=== PATIENT | male | born 1965 | race Caucasian/White ===

== ENCOUNTER 2022-02-12 06:31 | Inpatient (IN) | payer SELFPAY ==
[2022-02-12] VITALS (27 sets, daily range): BP systolic 97–180; BP diastolic 68–120; PULSE 48–71; RESP 12–22; TEMP 36.4–37; O2SAT 94–100; BMI 31.8; BMI 30.8
--- NOTE | 2022-02-12 | IR_ITS ---
APPROVED REPORT Patient Location: Emergent Head Holder: JUSTIN Guevara RT (R) PROCEDURES 1. Left heart catheterization 2. Selective coronary arteriography 3. Left ventriculography 4. PTCA/stent to the right coronary artery INDICATION 1. Acute coronary syndrome, 2. Non-Q wave myocardial infarction, 3. Abnormal EKG SCAI INDICATION Patient is a 56-year-old white male who presented with prolonged chest pain to the emergency room. Some inferior changes on the EKG. He was unable to get chest pain-free. Enzymes came back elevated. He has had stuttering chest pain over 2 days. Non-Q wave myocardial infarction with acute coronary syndrome. Heparin was given as well as Brilinta. Brought directly to the cardiac catheterization laboratory secondary to this Informed consent was obtained prior to the procedure. COMPLICATIONS None Estimated Blood Loss: Less than 10 mls TECHNIQUE One percent lidocaine was used to anesthetize the right groin. The right femoral artery was accessed via the Seldinger technique. A 6 Ghanaian sheath was placed in the right femoral artery. The JL-4 and JR-4 catheter was also used to perform left heart catheterization left ventriculogram and selective coronary angiogram. At the end of the procedure the patient was transferred to the post-op holding area in stable condition for arterial sheath removal. ANGIOGRAPHIC RESULTS The left main artery Angiographically normal The left anterior descending artery Diffuse 20 to 30% proximal and mid stenosis. Normal flow into the distal vessel The circumflex artery Diffuse 30% stenoses in the mid vessel. Mild calcification The right coronary artery Large and dominant. 90% proximal stenosis followed by 100% mid occlusion. Scant left to right collaterals filling the distal vessel The BEAVER ventriculogram reveals Borderline normal left ventricular systolic function with an ejection fraction of 50%. Mild to moderate inferior wall hypokinesis. No noted mitral insufficiency The left ventricular end-diastolic pressure 21 After diagnostic cath was performed I went in with a guide catheter to the right coronary artery. Crossed the 100% lesion with a Choice PT wire. I predilated with a 2 x 20 mm balloon. Took this up in 3 separate locations. Resulted in spiritism of normal MAKENZIE-3 flow to the vessel. There was a thrombus in the mid vessel where the lesion was present. I stented across this with a 3.0 x 26 mm drug-eluting stent. Resulted in 0% residual stenosis. I then stented the proximal vessel with a 3.0 x 15 mm drug-eluting stent. This also resulted in 0% residual stenosis. Excellent MAKENZIE-3 flow into the large posterior descending artery and posterior lateral branches when the procedure was complete. IMPRESSION 1. 100% occlusion of the large dominant right coronary artery in its midportion after the takeoff of an acute marginal branch 2. Mild to moderate diffuse disease in the left coronary system 3. Mild diffuse coronary calcification 4. Borderline normal left ventricular systolic function 5. Elevated left ventricular end-diastolic pressure 6. Successful angioplasty and stenting of the proximal and mid/distal large dominant right coronary artery with drug-eluting stents resulting in 0% residual stenosis and spiritism of normal MAKENZIE-3 flow 7. Successful placement of an Angio-Seal device in the right common femoral artery PLAN 1. Patient received a heparin bolus in the emergency room. His ACT was greater than 250 but I did give an additional 1000 of heparin during the procedure. Brilinta 180 mg was given in the emergency room. He will continue on 90 mg twice daily. 1 dose of IV Lasix in a couple of hours.
--- NOTE | 2022-02-12 06:36 | XR_ITS ---
PROCEDURE INFORMATION: Exam: XR Chest Exam date and time: 02/12/2022 6:40 AM Age: 56 years old Clinical indication: Left-sided; Patient HX: Left sided chest pain into shoulder TECHNIQUE: Imaging protocol: XR of the chest. Views: 2 views. COMPARISON: CR CS5 CERVICAL SPINE 4 OR 5 VIEWS 07/25/2016 1:15 PM FINDINGS: Tubes, catheters and devices: Overlying monitoring leads. Lungs: No lobar consolidation. Pleural spaces: Unremarkable. No pleural effusion. No pneumothorax. Heart/Mediastinum: Unremarkable. No cardiomegaly. Vasculature: Mild aortic tortuosity. Diaphragm: Diaphragmatic eventration is. Bones/joints: Spine degenerative changes. IMPRESSION: No acute findings.
--- NOTE | 2022-02-12 06:39 | CT_ITS ---
PROCEDURE INFORMATION: Exam: CT Abdomen And Pelvis With Contrast Exam date and time: 02/12/2022 7:32 AM Age: 56 years old Clinical indication: Vomiting; Abdominal pain; Periumbilical; Prior surgery; Surgery date: 6+ months; Surgery type: Appendix; Additional info: Abdominal pain/chest pain TECHNIQUE: Imaging protocol: Computed tomography of the abdomen and pelvis with contrast. Radiation optimization: All CT scans at this facility use at least one of these dose optimization techniques: automated exposure control; mA and/or kV adjustment per patient size (includes targeted exams where dose is matched to clinical indication); or iterative reconstruction. Contrast material: ISOVUE; Contrast volume: 75 ml; Contrast route: IV; COMPARISON: CR [id number] HIP RT 2-3V W/PELVIS IF PERFOR 07/25/2016 1:25 PM FINDINGS: Lungs: visualized portions of the lung bases normal. Liver: Fatty infiltration of the liver. Gallbladder and bile ducts: Normal. No calcified stones. No ductal dilation. Pancreas: Normal. No ductal dilation. Spleen: Normal. No splenomegaly. Adrenal glands: Normal. No mass. Kidneys and ureters: 1 cm cyst left kidney Stomach and bowel: Moderate amount stool within the large bowel. Appendix: The appendix is not visualized. Intraperitoneal space: No free fluid within the pelvis or within the dependent portions of the peritoneum. Arteries: Flow within the superior mesenteric artery, celiac trunk and inferior mesenteric arteries. Lymph nodes: Unremarkable. No enlarged lymph nodes. Urinary bladder: Unremarkable as visualized. Reproductive: Unremarkable as visualized. Bones/joints: osseous structures are unremarkable other than mild degenerative disk disease. No fracture. Soft tissues: Unremarkable. Other findings: No acute intra-abdominal process. No inflammatory process. No obstruction. IMPRESSION: 1. No acute intra-abdominal process. No inflammatory process. No obstruction. 2. No free fluid within the pelvis or within the dependent portions of the peritoneum. 3. Fatty infiltration of the liver. COMMENTS: Consistent with the [employer]'s Incidental Findings Committee white paper (J Am Lena Radiol 2018): Any incidental renal lesion less than 1 cm or classified as too small to characterize, or any incidental cystic renal lesion characterized as simple-appearing, is likely benign. No follow-up imaging is recommended for these lesions per consensus recommendations based on imaging criteria.
[2022-02-12 06:46] LABS: Basophils # 0.1 K/mm3 (0-0.2); Basophils % 1.1 % (0.1-2.0); Eosinophils # 0.1 K/mm3 (0.0-0.4); Eosinophils % 1.3 % (0.1-12.0); Hematocrit 43.1 % (42.0-52.0); Hemoglobin 14.3 g/dL (14.1-18.0); Lymphocytes % 11.6 % (10-50); Mean Corpuscular HGB Conc 33.2 g/dL (31.8-35.4); Mean Corpuscular Volume 96.5 fl (80-94); Mean Platelet Volume 8.4 fl (7.4-10.4); Monocytes # 0.3 K/mm3 (0.1-1.0); Monocytes % 3.4 % (1.7-9.3); Neutrophils % 82.7 % (37.0-80.0); Platelet Count 227 K/mm3 (142-424); Red Blood Count 4.46 M/mm3 (4.60-6.20); Red Cell Distribution Width 13.5 % (11.5-17.5); White Blood Count 8.5 K/mm3 (4.8-10.8)
[2022-02-12 07:12] LABS: Chloride 107 mmol/L (98-107); Potassium 4.1 mmoL/L (3.5-5.1); Sodium 138 mmol/L (136-145)
[2022-02-12 07:14] LABS: Amylase 63 U/L (30-110); Blood Urea Nitrogen 25 mg/dl (9-20); Creatinine Clearance Estimated 159 mL/min (50-200); Estimated Glomerular Filt Rate 100 ml/min (>60); GFR (African American) 121 ML/MIN (>60)
[2022-02-12 07:15] LABS: Alanine Aminotransferase 36 U/L (12-78); Albumin Level 4.2 g/dl (3.5-5.0); Alkaline Phosphatase 68 U/L (38-126); Anion Gap 11.1 mEq/L (5-15); Aspartate Amino Transferase 42 U/L (17-59); Bilirubin,Direct 0.1 mg/dl (0.0-0.4); Bilirubin,Indirect 0.4 mg/dL (0.0-0.9); Bilirubin,Total 0.5 mg/dl (0.2-1.3); Bilirubin,Unconjugated 0.4 mg/dL (0.0-1.1); Calcium 8.8 mg/dl (8.4-10.2); Carbon Dioxide 24 mmol/L (22.0-30.0); Glucose 114 mg/dl (74-100); Lipase 67 U/L (23-300); Total Protein,Serum 7.2 g/dl (6.3-8.2)
[2022-02-12 07:17] LABS: Erythrocyte Sedimentation Rate 18 mm/hr (0-20)
[2022-02-12 07:20] LABS: C-Reactive Protein 0.9 mg/L (0-4)
--- NOTE | 2022-02-12 07:23 | HMH.EDCP ---
ED Disposition Clinical Impression: Unstable angina pectoris Disposition: Admitted As Inpatient Condition on Discharge: Serious Referrals: Provider,Referral, [Primary Care Provider] - - Critical Care Critical Care Time: No Attestation: On 02/12/22, the high probability of a clinically significant, sudden or life threatening deterioration of the following system(s) required my full and direct attention, intervention and personal management. The time I documented below is in addition to time spent performing reported procedures but includes the following listed in this critical care notation. Medical Decision Making - Medical Records Medical records reviewed: Yes: I reviewed the patient's medical records. - Willie Inquiry Pt receiving controlled substance: No Vital Signs: 02/12/22 06:31 02/12/22 06:47 02/12/22 08:01 Temperature 97.8 F Temperature Source Oral Pulse Rate 66 56 L Pulse Rate [Left] 62 Respiratory Rate 13 Blood Pressure 180/120 H 173/107 H Blood Pressure [Right Arm] 160/106 H Blood Pressure Mean [Right Arm] 124 Blood Pressure Source Manual Cuff/ Auscultation Blood Pressure Position 02 Sat by Pulse Oximetry 100 100 Oxygen Delivery Method Room Air Room Air 02/12/22 08:12 Temperature Temperature Source Pulse Rate 51 L Pulse Rate [Left] Respiratory Rate 16 Blood Pressure 128/83 Blood Pressure [Right Arm] Blood Pressure Mean [Right Arm] Blood Pressure Source Blood Pressure Position Sitting 02 Sat by Pulse Oximetry 98 Oxygen Delivery Method Room Air - Lab Data Lab results reviewed: Yes: I reviewed the patient's lab results. Lab Results 02/12/22 06:37: WBC 8.5, RBC 4.46 L, Hgb 14.3, Hct 43.1, MCV 96.5 H, MCH 32.0 H, MCHC 33.2, RDW 13.5, Plt Count 227, MPV 8.4, Neut % (Auto) 82.7 H, Lymph % (Auto) 11.6, [place] % (Auto) 3.4, Eos % (Auto) 1.3, Baso % (Auto) 1.1, Neut # (Auto) 7.0, Lymph # (Auto) 1.0, [place] # (Auto) 0.3, Eos # (Auto) 0.1, Baso # (Auto) 0.1, ESR 18 02/12/22 06:37: Sodium 138, Potassium 4.1, Chloride 107, Carbon Dioxide 24, Anion Gap 11.1, BUN 25 H, Creatinine 0.80, Estimated Creat Clear 159, Estimated GFR 100, Est GFR ( Amer) 121, Glucose 114 H, Calcium 8.8, Total Bilirubin 0.5, Direct Bilirubin 0.1, Conjugated Bilirubin 0.0, Indirect Bilirubin 0.4, Unconjugated Bilirubin 0.4, AST 42, ALT 36, Alkaline Phosphatase 68, C-Reactive Protein 0.9, Total Protein 7.2, Albumin 4.2, Amylase 63, Procalcitonin 0.085 02/12/22 06:37: Troponin I 0.28 H, Lipase 67 02/12/22 07:57: SARS-CoV-2 (PCR) Not detected, Influenza A Untype (PCR) Not detected, Influenza Type B (PCR) Not detected Result diagrams: 02/12/22 06:37 02/12/22 06:37 Orders (Tests/Meds): ED MEDICATIONS Generic Name Dose Route Start Last Admin Trade Name Freq PRN Reason Stop Dose Admin Nitroglycerin 0.4 mg 02/12/22 08:07 02/12/22 08:04 Nitroglycerin 0.4mg Sl Tablet SL 03/14/22 08:06 0.4 mg Q5MINP PRN Administration Chest Pain Discontinued Medications Generic Name Dose Route Start Last Admin Trade Name Freq PRN Reason Stop Dose Admin Heparin Sodium (Porcine) 10,800 unit 02/12/22 09:00 Heparin Sodium 5,000 Unit/Ml Vial IV 02/12/22 09:01 ONCE ONE Lactated Ringer's 1,000 mls @ 999 mls/hr 02/12/22 06:45 02/12/22 06:44 Lactated Ringer's 1000 Ml Bag IV 02/12/22 07:45 999 mls/hr .Q1H1M VERONICA Administration Iopamidol 75 ml 02/12/22 07:47 02/12/22 07:48 Iopamidol-370 (76%);100ml Bottle IV 02/12/22 07:48 75 ml ONCE ONE Administration Morphine Sulfate 2 mg 02/12/22 08:46 02/12/22 08:47 Morphine 2mg/Ml Syringe IV 02/12/22 08:47 2 mg ONCE ONE Administration Nitroglycerin 1 gm 02/12/22 08:07 02/12/22 08:05 Nitroglycerin 1 Gm Ointment TD 02/12/22 08:08 1 gm ONCE ONE Administration Ondansetron HCl 4 mg 02/12/22 08:46 02/12/22 08:47 Ondansetron 4mg/2ml Vial IV 02/12/22 08:47 4 mg ONCE ONE Administration Sodium Chl
--- NOTE | 2022-02-12 07:30 | PC.NURSE ---
PT C/O CHEST TIGHTNESS, SOB, WHICH WOKE HIM UP THIS AM. PT WAS GIVEN 324MG ASA ENROUTE BY SQUAD. PT RATES PAIN 3/10
[2022-02-12 07:35] LABS: Troponin I 0.28 ng/ml (0.00-0.034)
--- NOTE | 2022-02-12 07:48 | ECG_ITS ---
APPROVED REPORT Exam: Resting ECG HR:51 bpm ECG Measurements Heart Rate 51 AXES MN 207 P 61 QRSd 105 QRS 75 QT 410 T 61 QTc 387 Conclusion SINUS BRADYCARDIA BORDERLINE ECG UNCONFIRMED REPORT Electronically signed by : Vidal Shah MD 02/13/2022 15:13:53
[2022-02-12 07:57] LABS: Procalcitonin 0.085 ng/mL (0.0-2.0)
--- NOTE | 2022-02-12 08:04 | PC.NURSE ---
has been paged
[2022-02-12 08:19] LABS: Coronavirus 19, PCR Not Detected (NotDetected); Influenza A, PCR Not Detected (NotDetected); Influenza B, PCR Not Detected (NotDetected)
--- NOTE | 2022-02-12 08:57 | PC.NURSE ---
0852: Notified by ER staff that pt is going to the distillery laborer at 1030 per MD. 0853: Obiee Architect notified to page cath team [phone] : Perri Lentz, and Mirna all returned call and notified of cath at 1030
--- NOTE | 2022-02-12 09:00 | PC.NURSE ---
PT RESTING CONTINUES TO C/O PAIN
[2022-02-12 09:17] LABS: Microscopic, Urine URINE MICROSCOPIC (MICROSCOPIC)
[2022-02-12 09:21] LABS: Appearance,Urine CLEAR (Clear); Bilirubin,Urine Negative (Negative); Blood, Urine Negative (Negative); Color,Urine YELLOW (Yellow); Glucose,Urine (UA) Negative (Negative); Ketones,Urine Negative (Negative); Leukocyte Esterase,Urine Negative (Negative); Nitrate,Urine Negative (Negative); PH,Urine 5.5 (5.0-8.5); Protein,Urine Negative (Negative); Specific Gravity, Urine >= 1.030 (1.005-1.030); Urobilinogen,Urine 0.2 EU/dl (0.2)
[2022-02-12 09:56] LABS: Bacteria,Urine Trace /lpf; Squamous Epithelial Cell,Urine Occasional #/hpf (0-5); WBC,Urine Occasional #/hpf (0-3)
--- NOTE | 2022-02-12 09:58 | PC.NURSE ---
pt's brother called regarding pt's condition gave password [email or web address]
--- NOTE | 2022-02-12 10:00 | PC.NURSE ---
PT UP TO BATHROOM AMBULATORY WITH NO COMP
--- NOTE | 2022-02-12 10:20 | PC.NURSE ---
TO RECEIVING WEIGHER PER STRETCHER
[2022-02-12 11:18] LABS: CATHL Activated Clotting Time 249 SEC (74-125)
[2022-02-12 13:41] LABS: Troponin I 5.29 ng/ml (0.00-0.034)
--- NOTE | 2022-02-12 13:48 | PC.NURSE ---
Dr. Borges notified of critical troponin of 5.29. NNO. Pt resting at this time w/ no d/o's.
--- NOTE | 2022-02-12 14:39 | HMH.HP ---
*Admission Date: 02/12/22 *Chief complaint: Chest pain *History of present illness: Mr. Lewis is a 56-year-old white male with no known heart disease but past history of hypertension and hyperlipidemia for which he has been treated in the past but quit taking his medication when he lost insurance 2 years ago. He states he had a stress test about 4 years ago that was normal. Two days ago while traveling out of town he had an episode of substernal chest pain that resolved spontaneously. Last night after going to bed he was awakened with severe substernal chest pain radiating to the left axilla. Symptoms worsened and he called EMS. An EKG at the scene was reported as normal and he therefore refused transport. However later his pain became even worse and he became nauseated with vomiting and he called EMS back to his house and was then transported to the ER. Evaluation in the ER showed equivocal EKG changes. His initial troponin was slightly elevated at 0.28. However with his classic presentation consistent with unstable angina, Dr. Lara spoke with Dr. Toussaint on-call for cardiology and the patient was taken directly to the Caseworker from the ER. He underwent left heart cath with findings of a 100% occluded dominant right coronary artery which was stented and reduced to 0% occlusion. I am seeing him now after arrival to the floor and he is pain-free. [facility] History Medical History: Reports:: Hyperlipidemia, Hypertension Denies:: Atherosclerotic Heart Disease *Have you ever received a pneumonia vaccine?: (unknown) *Have you received a flu vaccine this season?: (unknown) Other Surgeries: Yes: No Previous Surgery - *Social History Last grade of school completed: None Smoking Status: Never smoker Alcohol Intake: never Substance Use Type: denies use *Occupational Status:: employed ([employer]) *Travel in the last 8 weeks: Inside the [facility] Family Hx:: No significant family history Review of Systems - Constitutional Denies lack of energy, Denies weakness, Denies weight loss - Eyes Denies change in vision - ENT Denies dizziness, Denies headache(s), Denies sore throat - *Cardiovascular Reports other (See HPI) - *Respiratory Denies chest congestion, Denies cough, Denies coughing up blood - *Gastrointestinal Reports difficulty swallowing, Denies abdominal pain, Denies coffee ground vomit - *Genitourinary Denies difficulty urinating - *Musculoskeletal Denies joint pain, Denies muscle cramps - Integumentary/Breasts Reports itching, Reports rash, Denies change in skin color - *Neurologic Denies confusion, Denies dizziness, Denies numbness - Psychiatric Denies anxiety, Denies confusion, Denies depression - Endocrine Denies rapid, pounding, or irregular heartbeat - Hematologic/Lymphatic Reports easy bruising - Allergic/Immunologic Denies itchy eyes Meds Home Medications Medication Instructions Recorded Confirmed Type No Known Home Medications 02/12/22 02/12/22 History Allergies Allergy/AdvReac Type Severity Reaction Status Date / Time lisinopril Allergy Mild Swelling Verified 02/12/22 14:52 of Lip/Tongue/Throat Exam Vital signs and Labs for Last 24 Hours: Temp Pulse Resp BP Pulse Ox 97.6 F 58 L 14 139/81 98 02/12/22 12:15 02/12/22 13:45 02/12/22 13:45 02/12/22 13:45 02/12/22 13:45 Laboratory Results - last 24 hr 02/12/22 06:37: WBC 8.5, RBC 4.46 L, Hgb 14.3, Hct 43.1, MCV 96.5 H, MCH 32.0 H, MCHC 33.2, RDW 13.5, Plt Count 227, MPV 8.4, Neut % (Auto) 82.7 H, Lymph % (Auto) 11.6, [place] % (Auto) 3.4, Eos % (Auto) 1.3, Baso % (Auto) 1.1, Neut # (Auto) 7.0, Lymph # (Auto) 1.0, [place] # (Auto) 0.3, Eos # (Auto) 0.1, Baso # (Auto) 0.1, ESR 18 02/12/22 06:37: Sodium 138, Potassium 4.1, Chloride 107, Carbon Dioxide 24, Anion Gap 11.1, BUN 25 H, Creatinine 0.80, Estimated Creat Clear 159, Estimated GFR 100, Est GFR ( Amer) 121, Glucose 114 H, Calcium 8.
[2022-02-13] VITALS (9 sets, daily range): BP systolic 104–140; BP diastolic 60–96; PULSE 53–71; RESP 16–20; TEMP 36.6–37.3; O2SAT 95–98; BMI 30.5
--- NOTE | 2022-02-13 04:06 | PC.NURSE ---
Addendum entered by Beth Torres RN 02/13/22 07:02: Patient has been katelynn on telemetry off & on. Patient does occasionally drop to 46-49. Patient has continued to be easily aroused. Original Note: Patient has rested well this shift. Cath site remains soft upon palpation, no bruising noted. He has remained hemodynamically stable and NSR on telemetry.
[2022-02-13 07:54] LABS: Basophils % 0.5 % (0.1-2.0); Eosinophils # 0.2 K/mm3 (0.0-0.4); Eosinophils % 2.8 % (0.1-12.0); Hematocrit 43.8 % (42.0-52.0); Hemoglobin 14.8 g/dL (14.1-18.0); Lymphocytes # 1.7 K/mm3 (0.7-4.5); Lymphocytes % 22.3 % (10-50); Mean Corpuscular HGB Conc 33.7 g/dL (31.8-35.4); Mean Corpuscular Hemoglobin 31.5 pg (27.0-31.2); Mean Corpuscular Volume 93.5 fl (80-94); Mean Platelet Volume 8.2 fl (7.4-10.4); Monocytes # 0.5 K/mm3 (0.1-1.0); Monocytes % 6.8 % (1.7-9.3); Neutrophils # 5.1 K/mm3 (1.8-7.8); Neutrophils % 67.6 % (37.0-80.0); Platelet Count 151 K/mm3 (142-424); Red Blood Count 4.68 M/mm3 (4.60-6.20); White Blood Count 7.5 K/mm3 (4.8-10.8)
[2022-02-13 09:05] LABS: Chloride 104 mmol/L (98-107)
[2022-02-13 09:06] LABS: Potassium 4.6 mmoL/L (3.5-5.1); Sodium 136 mmol/L (136-145)
[2022-02-13 09:08] LABS: Blood Urea Nitrogen 22 mg/dl (9-20); Creatinine Clearance Estimated 140 mL/min (50-200); Estimated Glomerular Filt Rate 87 ml/min (>60); GFR (African American) 106 ML/MIN (>60)
[2022-02-13 09:09] LABS: Anion Gap 9.6 mEq/L (5-15); Calcium 9.8 mg/dl (8.4-10.2); Carbon Dioxide 27 mmol/L (22.0-30.0); Cholesterol 241 mg/dl (140-200); Glucose 106 mg/dl (74-100); Magnesium 1.8 mg/dl (1.6-2.3); Triglycerides 217 mg/dl (30-150); VLDL Cholesterol 43 mg/dL (0-40)
[2022-02-13 09:10] LABS: Chol/HDL Ratio 5.7 (1-3.5); HDL Cholesterol 42 mg/dl (40-60)
[2022-02-13 09:20] LABS: Direct LDL Cholesterol 164.41 mg/dL (100-129)
--- NOTE | 2022-02-13 09:22 | P.PN_ITS ---
Internal Medicine - PN: Subj *Date: 02/13/22 *Time: 09:22 Interval history: Rested well last night. No complaints of chest pain or chest pressure. Exam Vital signs and Labs for Last 24 Hours: Temp Pulse Resp BP Pulse Ox 97.9 F 71 18 137/85 96 02/13/22 08:00 02/13/22 08:00 02/13/22 08:00 02/13/22 08:00 02/13/22 08:00 Laboratory Results - last 24 hr 02/12/22 06:46: Urine Color Yellow, Urine Appearance Clear, Urine pH 5.5, Ur Specific [place] >= 1.030, Urine Protein Negative, Urine Glucose (UA) Negative, Urine Ketones Negative, Urine Blood Negative, Urine Nitrate Negative, Urine Bilirubin Negative, Urine Urobilinogen 0.2, Ur Leukocyte Esterase Negative, Urine RBC None, Urine WBC Occasional, Ur Squamous Epith Cells Occasional, Urine Bacteria Trace 02/12/22 10:07: Troponin I 1.90 H 02/12/22 10:31: Activated Clotting Time 249 H* 02/12/22 13:05: Troponin I 5.29 H 02/13/22 07:15: WBC 7.5, RBC 4.68, Hgb 14.8, Hct 43.8, MCV 93.5, MCH 31.5 H, MCH C 33.7, RDW 13.0, Plt Count 151 D, MPV 8.2, Neut % (Auto) 67.6, Lymph % (Auto) 22.3, [place] % (Auto) 6.8, Eos % (Auto) 2.8, Baso % (Auto) 0.5, Neut # (Auto) 5.1, Lymph # (Auto) 1.7, [place] # (Auto) 0.5, Eos # (Auto) 0.2, Baso # (Auto) 0.0 02/13/22 07:15: Sodium 136, Potassium 4.6, Chloride 104, Carbon Dioxide 27, Anion Gap 9.6, BUN 22 H, Creatinine 0.90, Estimated Creat Clear 140, Estimated GFR 87, Est GFR ( Amer) 106, Glucose 106 H, Calcium 9.8, Magnesium 1.8, Triglycerides 217 H, Cholesterol 241 H, LDL Cholesterol Direct 164.41 H, VLDL Cholesterol 43 H, HDL Cholesterol 42, Cholesterol/HDL Ratio 5.7 H I & O for Last 24 hours: Intake & Output 02/10/22 02/11/22 02/12/22 02/13/22 11:59 11:59 11:59 11:59 Intake Total 1473 / 1473 Output Total 3825 / 3825 Balance -2352 / -2352 Weight 240 lb 238 lb 1.588 oz Narrative: Remains borderline bradycardic with pulse into the 40s while sleeping last night. He is alert and oriented. Color is good. Lungs are clear to auscultation. Heart is regular. Extremities no edema. Assessment and Plan (1) Unstable angina pectoris Status: Acute Category: Medical Code(s): I20.0 - Unstable angina (2) NSTEMI (non-ST elevated myocardial infarction) Status: Acute Category: Medical Code(s): I21.4 - Non-ST elevation (NSTEMI) myocardial infarction (3) S/P coronary artery stent placement Status: Acute Category: Surgical Code(s): Z95.5 - Presence of coronary angioplasty implant and graft (4) HBP (high blood pressure) Status: Acute Category: Medical Code(s): I10 - Essential (primary) hypertension (5) Bradycardia Status: Acute Category: Medical Code(s): R00.1 - Bradycardia, unspecified - Assessment and plan all Dx Assessment and Plan for all problems:: Stable course. We will continue to hold beta-blockers due to bradycardia. Up in chair today. Echocardiogram tomorrow.
[2022-02-14] VITALS: PULSE 50
[2022-02-14 03:39] VITALS: BP 145/90; PULSE 58; RESP 17; TEMP 36.7; O2SAT 97
[2022-02-14 04:00] VITALS: PULSE 70
--- NOTE | 2022-02-14 04:12 | PC.NURSE ---
Patient has remained NSR on telemetry. No complaints voiced to this RN. No acute events thus far.
[2022-02-14 04:54] VITALS: BMI 30.5
[2022-02-14 08:00] VITALS: BP 139/99; PULSE 70; RESP 18; TEMP 36.5; O2SAT 96
--- NOTE | 2022-02-14 08:00 | CA_ITS ---
APPROVED REPORT EXAM: Comprehensive 2D, Doppler, and color-flow Echocardiogram Art Historian: Queenie Story, RCS, RVS Ht: 6 ft 2 in Wt: 238lbs BSA: 2.34 BP: 123/80 mmHg Indications: s/p stents-CAD, ex-smoker, Hx- covid 2D Dimensions IVSd 1.01 cm LVEF (Visual) 62.20 % PWd 1.24 cm LA Volume 40.40 mL LVDd 4.79 cm LA Volume Index 17.30 mL/m2 (M/F) 16-34 LVDs 3.16 cm Aortic Root 3.33 cm Left Atrium 3.44 cm LVOT 1.95 cm (M/F) 1.5-2.5 M-Mode Dimensions RVDd 1.07 cm (0.9-2.6) LA Diam 4.04 cm (1.9-4.0) LVDd 5.71 cm (3.5-5.7) Ao Diam 3.63 cm (2.0-3.7) LVDs 3.60 cm (3.5-5.7) IVSd 0.82 cm (0.6-1.1) PWd 0.95 cm (0.6-1.1) EF (Teich) 66.10% EPSs 1.09 cm FS 37.00% EDV (Teich) 160.70 mL TAPSE 2.42 (<1.7) ESV (Teich) 54.40 mL LV Diastology E Decel Time 330.00 (160-240 msec) E/A Ratio 0.69 MED E' 7.80 (< 7 cm/sec) MED A' 13.40 cm/s E'/MED E' Ratio 7.55 (>14) LAT E' 9.90 (<10 cm/sec) LAT A' 11.10 cm/s E/LAT E' Ratio 5.95 (>14) Aortic Valve LVOT Max 110.00 (70-110 cm/s) LVOT VTI 20.67 cm AoV Peak Ubaldo. 126.00 (50-130 cm/s) AO Peak GR. 6.40 mmHg AO Mean GR. 3.20 (<5 mmHg) AO VTI 21.71 (18-25 cm) THOMAS (VTI) 2.84 (2.5-4.5 cm2) Mitral Valve MV A Velocity 85.00 (40-130 cm/s) E/A Ratio 0.69 MV Decel. Time 330.00 (160-240 ms) Pulmonary Valve PV Peak Velocity 93.00 (50-150 cm/s) NH End VMAX 126.00 cm/s Left Ventricle Left atrium is mildly enlarged, left ventricle is normal size, mild concentric left ventricular hypertrophy, estimated ejection fraction 50%, there is moderate inferior basal wall hypokinesis. Grade 1 diastolic dysfunction seen without tissue Doppler evidence of raise left atrial pressure. Right Ventricle Right atrium and right ventricle mildly enlarged with normal contractility. Aortic Valve Aortic valve is minimally thickened and calcified without aortic stenosis or aortic insufficiency. Mitral Valve Mitral valve grossly normal, there is trace mitral regurgitation. Tricuspid Valve Tricuspid grossly normal, there is trace tricuspid regurgitation, tricuspid regurgitation jet velocity is inadequate for calculation of the right ventricular systolic pressure. Pulmonic Valve Pulmonic valve is poorly visualized. Great Vessels Aortic root is normal size. Inferior vena cava is poorly visualized. Pericardium No significant pericardial effusion noted. Conclusion 1. Mild biatrial enlargement, normal left ventricular size, mild concentric left ventricular hypertrophy, estimated ejection fraction 50% with segmental wall motion abnormality described above, grade 1 diastolic dysfunction seen without tissue Doppler evidence of raise left atrial pressure. 2. Mildly enlarged right ventricle with normal contractility. 3. Trace mitral and tricuspid regurgitation. 4. No significant pericardial effusion. 5. Inferior vena cava is poorly visualized. Electronically signed by : Aiden Smith MD 02/14/2022 20:47:42
--- NOTE | 2022-02-14 09:10 | HMH.PHAVTE ---
[facility] Pharmacy VTE Monitoring - Patient Demographics Admission date: 02/14/22 Report Date: 02/14/22 Time: 09:10 Allergies/Adverse Reactions: Patient Allergies lisinopril Allergy (Mild, Verified 02/12/22 14:52) Swelling of Lip/Tongue/Throat Height: 1.88 m Weight: 108 kg Patient Problems: Current Active Problems Unstable angina pectoris (Acute) NSTEMI (non-ST elevated myocardial infarction) (Acute) S/P coronary artery stent placement (Acute) HBP (high blood pressure) (Acute) Bradycardia (Acute) - VTE Risk Labs: VTE Related Lab Results Hgb 14.8 g/dL (14.1-18.0) 02/13/22 07:15 Hct 43.8 % (42.0-52.0) 02/13/22 07:15 Plt Count 151 K/mm3 (142-424) D 02/13/22 07:15 BUN 22 mg/dl (9-20) H 02/13/22 07:15 Creatinine 0.90 mg/dl (0.66-1.25) 02/13/22 07:15 Estimated Creat Clear 140 mL/min (50-200) 02/13/22 07:15 Clinical Trial Participant: No - Prophylaxis VTE Prophylaxis Ordered?: Yes Types of VTE Prophylaxis: TEDS Knee High Location of Applied Device: Not Applicable
--- NOTE | 2022-02-14 09:23 | HMH.ACPN2 ---
<Ramila Bella - Last Filed: 02/14/22 09:23> Internal Medicine - PN: Subj *Date: 02/14/22 *Time: 09:23 Interval history: Patient is doing well. He denies chest pain and shortness of breath. He is anxious to go home. Exam Vital signs and Labs for Last 24 Hours: Temp Pulse Resp BP Pulse Ox 97.7 F 70 18 139/99 H 96 02/14/22 08:00 02/14/22 08:00 02/14/22 08:00 02/14/22 08:00 02/14/22 08:00 I & O for Last 24 hours: Intake & Output 02/11/22 02/12/22 02/13/22 02/14/22 11:59 11:59 11:59 11:59 Intake Total 1473 / 1473 1200 / 1200 Output Total 3825 / 3825 1275 / 1275 Balance -2352 / -2352 -75 / -75 Weight 240 lb 238 lb 1.588 oz 238 lb 1.588 oz - Constitutional no acute distress - *Routine Respiratory Exam Present: CTA bilaterally (Anteriorly and posteriorly) - *Routine Cardiovascular Exam Present: RRR - *Routine Abdominal Exam Present: soft, normoactive bowel sounds. Absent: tenderness - *Routine Extremities Exam Absent: edema, calf tenderness - *Routine Neurological Exam Present: alert, oriented X3 Assessment and Plan (1) Unstable angina pectoris Status: Acute Category: Medical Code(s): I20.0 - Unstable angina (2) NSTEMI (non-ST elevated myocardial infarction) Status: Acute Category: Medical Code(s): I21.4 - Non-ST elevation (NSTEMI) myocardial infarction (3) S/P coronary artery stent placement Status: Acute Category: Surgical Code(s): Z95.5 - Presence of coronary angioplasty implant and graft (4) HBP (high blood pressure) Status: Acute Category: Medical Code(s): I10 - Essential (primary) hypertension (5) Bradycardia Status: Acute Category: Medical Code(s): R00.1 - Bradycardia, unspecified - Assessment and plan all Dx Assessment and Plan for all problems:: Cardiology to follow. Probably home today. <Andrés Borges - Last Filed: 02/14/22 17:56> Internal Medicine - PN: Subj *Date: 02/14/22 *Time: 17:56 Exam Vital signs and Labs for Last 24 Hours: Temp Pulse Resp BP Pulse Ox 98.3 F 73 18 138/83 99 02/14/22 11:38 02/14/22 11:38 02/14/22 11:38 02/14/22 11:38 02/14/22 11:38 I & O for Last 24 hours: Intake & Output 02/12/22 02/13/22 02/14/22 02/15/22 11:59 11:59 11:59 11:59 Intake Total 1473 / 1473 1200 / 1200 Output Total 3825 / 3825 1275 / 1275 Balance -2352 / -2352 -75 / -75 Weight 240 lb 238 lb 1.588 oz 238 lb 1.588 oz Assessment and Plan (1) NSTEMI (non-ST elevated myocardial infarction) Status: Acute Category: Medical Code(s): I21.4 - Non-ST elevation (NSTEMI) myocardial infarction (2) S/P coronary artery stent placement Status: Acute Category: Surgical Code(s): Z95.5 - Presence of coronary angioplasty implant and graft (3) HBP (high blood pressure) Status: Acute Category: Medical Code(s): I10 - Essential (primary) hypertension (4) Bradycardia Status: Acute Category: Medical Code(s): R00.1 - Bradycardia, unspecified (5) HLD (hyperlipidemia) Status: Acute Category: Medical Code(s): E78.5 - Hyperlipidemia, unspecified - Assessment and plan all Dx Assessment and Plan for all problems:: Patient seen and examined this morning. Concur with above. Echocardiogram pending waiting final cardiology recommendations. Likely discharge later today.
--- NOTE | 2022-02-14 11:19 | HMH.CNCARD ---
History of Present Illness Consult date: 02/14/22 Requesting physician: Andrés Borges Consult reason: chest pain Chief complaint: chest pain History of present illness: This is a 56-year-old white gentleman who presented to the emergency department with complaints of chest pain. The patient states that he was traveling 2 days ago and he had an episode of substernal chest pain that resolved spontaneously. Then it recurred where it suddenly woke him up and he was having severe substernal pain and heaviness radiating to his left axilla. The patient symptoms continued to worsen so he called EMS. Patient refused transport to the hospital at that time however his pain continued to worsen and he became nauseated with vomiting and had some shortness of breath so he called EMS back to his house and was transported here to the emergency department. The patient's initial troponin was elevated 0.28 consistent with a non-ST elevation myocardial infarction. Dr. Toussaint came in to evaluate the patient in the [facility] and he was found to have 100% occluded dominant right coronary artery which was stented to reduce the stenosis to 0%. The patient was started on Brilinta and aspirin for dual antiplatelet therapy. Since that time the patient has remained pain-free. He denies any chest pain or pressure. He states he did notice a little shortness of breath last night after taking the Brilinta but otherwise no exertional shortness of breath. No edema. No fever, chills, nausea, vomiting, diarrhea, PND or orthopnea. [facility] History I have reviewed the patient's past medical history: Yes Medical History: Reports:: Coronary Artery Disease, Hyperlipidemia, Hypertension Denies:: Atherosclerotic Heart Disease *Have you ever received a pneumonia vaccine?: (unknown) *Have you received a flu vaccine this season?: (unknown) Other Surgeries: Yes: No Previous Surgery - *Social History Last grade of school completed: None Smoking Status: Never smoker Alcohol Intake: never Substance Use Type: denies use *Occupational Status:: employed ([email or web address]) *Travel in the last 8 weeks: Inside the [place] Family Hx:: No significant family history Meds Home Medications Medication Instructions Recorded Confirmed Type No Known Home Medications 02/12/22 02/12/22 History Allergies Allergy/AdvReac Type Severity Reaction Status Date / Time lisinopril Allergy Mild Swelling Verified 02/12/22 14:52 of Lip/Tongue/Throat Exam Vital signs and Labs for Last 24 Hours: Temp Pulse Resp BP Pulse Ox 97.7 F 70 18 139/99 H 96 02/14/22 08:00 02/14/22 08:00 02/14/22 08:00 02/14/22 08:00 02/14/22 08:00 I & O for Last 24 hours: Intake & Output 02/11/22 02/12/22 02/13/22 02/14/22 23:59 23:59 23:59 23:59 Intake Total 360 / 360 1833 / 1833 480 / 480 Output Total 3125 / 3125 700 / 1575 1275 / 1275 Balance -2765 / -2765 1133 / 258 -795 / -795 Weight 240 lb 238 lb 1.588 oz 238 lb 1.588 oz Narrative: Left heart cath shows: The left main artery Angiographically normal The left anterior descending artery Diffuse 20 to 30% proximal and mid stenosis. Normal flow into the distal vessel The circumflex artery Diffuse 30% stenoses in the mid vessel. Mild calcification The right coronary artery Large and dominant. 90% proximal stenosis followed by 100% mid occlusion. Scant left to right collaterals filling the distal vessel The BEAVER ventriculogram reveals Borderline normal left ventricular systolic function with an ejection fraction of 50%. Mild to moderate inferior wall hypokinesis. No noted mitral insufficiency The left ventricular end-diastolic pressure 21 After diagnostic cath was performed I went in with a guide catheter to the right coronary artery. Crossed the 100% lesion with a Choice PT wire. I predilated with a 2 x 20 mm balloon. Took this up in 3 separate locations. Resulted in denominational of normal MAKENZIE
[2022-02-14 11:38] VITALS: BP 138/83; PULSE 73; RESP 18; TEMP 36.8; O2SAT 99
--- NOTE | 2022-02-14 14:11 | HMH.PHAINT ---
I spoke with the patient today about their medication list. Went over the new medications being sent in for the patient. Patient was not on any medications prior to admission. When we spoke, the patient did not have any questions or concerns. 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
--- NOTE | 2022-02-14 14:13 | HMH.PHACLD ---
Arpit Lewis has received discharge medication counseling on the following medications: 1. DAPT (Aspirin 81mg and Brilinta 90mg) 2. Atorvastatin 80mg 3. Irbesartan 150mg Patient did not receive a beta-wil due to concerns of bradycardia
--- NOTE | 2022-02-15 13:32 | CARE MANAGER ---
Addendum entered by Nisha Simon RN 02/16/22 15:38: Contacted patient related to follow up from hospital discharge. He states he was able to get his meds and has appointment and lab work scheduled. He denies any questions or concerns. CHARITY Billy Original Note: Attempted to contact patient related to hospital discharge follow up. Left Vm message. CHARITY Billy
--- NOTE | 2022-02-15 22:30 | HMH.DCSUM ---
General - General Admission date:: 02/12/22 <Andrés Borges - 02/25/22 07:49> 02/12/22 <Alma Roche - 02/15/22 22:34> Discharge date: 02/14/22 <Alma Roche - 02/15/22 22:34> HPI HPI: Mr. Lewis is a 56-year-old white male with no known heart disease but past history of hypertension and hyperlipidemia for which he has been treated in the past but quit taking his medication when he lost insurance 2 years ago. He states he had a stress test about 4 years ago that was normal. Two days ago while traveling out of town he had an episode of substernal chest pain that resolved spontaneously. Last night after going to bed he was awakened with severe substernal chest pain radiating to the left axilla. Symptoms worsened and he called EMS. An EKG at the scene was reported as normal and he therefore refused transport. However later his pain became even worse and he became nauseated with vomiting and he called EMS back to his house and was then transported to the ER. Evaluation in the ER showed equivocal EKG changes. His initial troponin was slightly elevated at 0.28. However with his classic presentation consistent with unstable angina, Dr. Lara spoke with Dr. Toussaint on-call for cardiology and the patient was taken directly to the [facility] from the ER. He underwent left heart cath with findings of a 100% occluded dominant right coronary artery which was stented and reduced to 0% occlusion. I am seeing him now after arrival to the floor and he is pain-free. <Alma Roche - 02/15/22 22:34> Hospital Course Hospital Course: The patient was started on Brilinta, aspirin, ARB, and statin. His beta-wil was held due to bradycardia. He was kept for monitoring and had no complaints of chest pain or chest pressure. An echo was ordered on 02/14/2022 which showed an EF of 50% with grade 1 diastolic dysfunction. He was seen in follow-up by cardiology who increased his irbesartan to 250 mg daily for better blood pressure control. He was not a candidate for beta-wil due to continued bradycardia. They felt he could be discharged home and follow-up in 1 week. He did have a brief episode of lightheadedness, nausea, and diaphoresis when he got up to a chair and was given Zofran and his symptoms resolved. He was able to get up to go to the bathroom and move about his room with no problems and was anxious to discharge, therefore he was discharged home. <KaleyAlma - 02/15/22 22:34> Objective Vital signs: Temp Pulse Resp BP Pulse Ox 98.3 F 73 18 138/83 99 02/14/22 11:38 02/14/22 11:38 02/14/22 11:38 02/14/22 11:38 02/14/22 11:38 <Andrés Borges - 02/25/22 07:49> Temp Pulse Resp BP Pulse Ox 98.3 F 73 18 138/83 99 02/14/22 11:38 02/14/22 11:38 02/14/22 11:38 02/14/22 11:38 02/14/22 11:38 <JorgitoAlma dye - 02/15/22 22:34> Narrative: - Constitutional no acute distress - *Routine Respiratory Exam Present: CTA bilaterally (Anteriorly and posteriorly) - *Routine Cardiovascular Exam Present: RRR - *Routine Abdominal Exam Present: soft, normoactive bowel sounds. Absent: tenderness - *Routine Extremities Exam Absent: edema, calf tenderness - *Routine Neurological Exam Present: alert, oriented X3 <JorgitoAlma dye - 02/15/22 22:34> DS: Diagnosis - Discharge Diagnosis (1) NSTEMI (non-ST elevated myocardial infarction) Status: Acute (2) S/P coronary artery stent placement Status: Acute (3) HBP (high blood pressure) Status: Acute (4) Bradycardia Status: Acute (5) HLD (hyperlipidemia) Status: Acute <Alma Roche - 02/15/22 22:30> (1) NSTEMI (non-ST elevated myocardial infarction) Status: Acute (2) S/P coronary artery stent placement Status: Acute (3) HBP (high blood pressure) Status: Acute (4) Bradycardia Status: Acute (5) HLD (hyperlipidemia) Status: Acute <Andrés Borges -
== END 2022-02-14 14:50 | disposition home or self-care (01) | DRG 247 ==
LOC: ER 09:22 → CATHLAB 10:31 → ICU 14:38
PROVIDERS: Internal Medicine Cardiovascular Disease; Admitting Provider Family Medicine; Emergency Provider Emergency Medicine; Visit Provider Family Medicine
PROC: 027035Z Dilation of Coronary Artery, One Artery with Two Drug-eluting Intraluminal Devices, Percutaneous Approach (ICD-10-PCS; principal; 2022-02-12 10:30)
DX: I25.110 Atherosclerotic heart disease of native coronary artery with unstable angina pectoris (principal); I21.4 Non-ST elevation (NSTEMI) myocardial infarction; I10 Essential (primary) hypertension; E78.5 Hyperlipidemia, unspecified; R00.1 Bradycardia, unspecified; I25.82 Chronic total occlusion of coronary artery; Z20.822 Contact with and (suspected) exposure to COVID-19
CPT/HCPCS: 36415; 71046; 74177; 80048; 80061; 80076; 81001; 82150; 83690; 83735; 84145; 84484; 85025; 85347; 85651; 86140; 92943; 93005; 93306; 93458; 96375; 96376; 99152; 99285; C1725; C1760; C1769; C1876; C1894; C9607; C9803; J1644; J2405; Q9967; U0003; U0005

== ENCOUNTER → 2022-05-26 11:59 | Outpatient (CLI) | payer SELFPAY ==
[2022-05-26 13:14] LABS: Basophils # 0.1 K/mm3 (0-0.2); Basophils % 1.7 % (0.1-2.0); Eosinophils # 0.2 K/mm3 (0.0-0.4); Eosinophils % 3.7 % (0.1-12.0); Hematocrit 41.9 % (42.0-52.0); Hemoglobin 13.5 g/dL (14.1-18.0); Lymphocytes # 1.7 K/mm3 (0.7-4.5); Lymphocytes % 34.1 % (10-50); Mean Corpuscular HGB Conc 32.2 g/dL (31.8-35.4); Mean Corpuscular Hemoglobin 31.2 pg (27.0-31.2); Mean Corpuscular Volume 96.8 fl (80-94); Mean Platelet Volume 8.8 fl (7.4-10.4); Monocytes # 0.5 K/mm3 (0.1-1.0); Monocytes % 9.8 % (1.7-9.3); Neutrophils # 2.6 K/mm3 (1.8-7.8); Neutrophils % 50.6 % (37.0-80.0); Platelet Count 239 K/mm3 (142-424); Red Blood Count 4.33 M/mm3 (4.60-6.20); Red Cell Distribution Width 13.4 % (11.5-17.5); White Blood Count 5.1 K/mm3 (4.8-10.8)
[2022-05-26 13:49] LABS: Chloride 108 mmol/L (98-107)
[2022-05-26 13:50] LABS: Potassium 4.5 mmoL/L (3.5-5.1)
[2022-05-26 13:52] LABS: Alanine Aminotransferase 63 U/L (12-78); Aspartate Amino Transferase 42 U/L (17-59); Bilirubin,Unconjugated 0.2 mg/dL (0.0-1.1); Blood Urea Nitrogen 20 mg/dl (9-20); Carbon Dioxide 24 mmol/L (22.0-30.0); Estimated Glomerular Filt Rate 100 ml/min (>60); GFR (African American) 121 ML/MIN (>60)
[2022-05-26 13:53] LABS: Albumin Level 4.2 g/dl (3.5-5.0); Alkaline Phosphatase 70 U/L (38-126); Bilirubin,Direct 0.2 mg/dl (0.0-0.4); Bilirubin,Indirect 0.2 mg/dL (0.0-0.9); Bilirubin,Total 0.4 mg/dl (0.2-1.3); Calcium 9.7 mg/dl (8.4-10.2); Chol/HDL Ratio 3.5 (1-3.5); Cholesterol 127 mg/dl (140-200); Glucose 99 mg/dl (74-100); HDL Cholesterol 36 mg/dl (40-60); Magnesium 1.7 mg/dl (1.6-2.3); Total Protein,Serum 6.7 g/dl (6.3-8.2); Triglycerides 94 mg/dl (30-150); VLDL Cholesterol 19 mg/dL (0-40)
[2022-05-26 14:10] LABS: Free T4 (Free Thyroxine) 0.85 ng/dl (0.78-2.19)
[2022-05-26 14:23] LABS: Thyroid Stimulating Hormone 2.15 uIU/mL (0.465-4.68)
[2022-05-26 14:53] LABS: Anion Gap 10.5 mEq/L (5-15); Sodium 138 mmol/L (136-145)
[2022-05-28 07:18] LABS: Direct LDL Cholesterol 69 mg/dL (100-129)
== END ==
LOC: LAB 11:59
PROVIDERS: Visit Provider Nurse Practitioner
DX: I25.10 Atherosclerotic heart disease of native coronary artery without angina pectoris (principal); I10 Essential (primary) hypertension; E78.5 Hyperlipidemia, unspecified; Z95.5 Presence of coronary angioplasty implant and graft
CPT/HCPCS: 36415; 80048; 80061; 80076; 83735; 84439; 84443; 85025

== ENCOUNTER → 2023-02-13 09:15 | Outpatient (CLI) | payer SELFPAY ==
[2023-02-13 09:58] LABS: Basophils # 0.1 K/mm3 (0-0.2); Basophils % 0.8 % (0.1-2.0); Eosinophils # 0.2 K/mm3 (0.0-0.4); Hematocrit 44.2 % (42.0-52.0); Hemoglobin 14.2 g/dL (14.1-18.0); Lymphocytes # 1.2 K/mm3 (0.7-4.5); Mean Corpuscular HGB Conc 32.2 g/dL (31.8-35.4); Mean Corpuscular Hemoglobin 30.9 pg (27.0-31.2); Mean Corpuscular Volume 95.9 fl (80-94); Mean Platelet Volume 8.3 fl (7.4-10.4); Monocytes # 0.4 K/mm3 (0.1-1.0); Monocytes % 6.9 % (1.7-9.3); Neutrophils # 4.6 K/mm3 (1.8-7.8); Neutrophils % 70.4 % (37.0-80.0); Platelet Count 245 K/mm3 (142-424); Red Blood Count 4.61 M/mm3 (4.60-6.20); Red Cell Distribution Width 13.2 % (11.5-17.5); White Blood Count 6.5 K/mm3 (4.8-10.8)
[2023-02-13 11:12] LABS: Alanine Aminotransferase 29 U/L (12-78); Albumin Level 4.5 g/dl (3.5-5.0); Alkaline Phosphatase 65 U/L (38-126); Anion Gap 10.9 mEq/L (5-15); Aspartate Amino Transferase 24 U/L (17-59); Bilirubin,Indirect 0.7 mg/dL (0.0-0.9); Bilirubin,Total 0.7 mg/dl (0.2-1.3); Bilirubin,Unconjugated 0.9 mg/dL (0.0-1.1); Blood Urea Nitrogen 27 mg/dl (9-20); Calcium 9.4 mg/dl (8.4-10.2); Carbon Dioxide 30 mmol/L (22.0-30.0); Chloride 104 mmol/L (98-107); Chol/HDL Ratio 3.1 (1-3.5); Cholesterol 130 mg/dl (140-200); Estimated Glomerular Filt Rate 77 ml/min (>60); GFR (African American) 93 ML/MIN (>60); Glucose 88 mg/dl (74-100); HDL Cholesterol 42 mg/dl (40-60); Potassium 4.9 mmoL/L (3.5-5.1); Sodium 140 mmol/L (136-145); Total Protein,Serum 7.1 g/dl (6.3-8.2); Triglycerides 137 mg/dl (30-150); VLDL Cholesterol 27 mg/dL (0-40)
[2023-02-13 11:22] LABS: Direct LDL Cholesterol 70.93 mg/dL (100-129)
[2023-02-13 11:43] LABS: Thyroid Stimulating Hormone 1.75 uIU/mL (0.465-4.68)
== END ==
PROVIDERS: Visit Provider Nurse Practitioner
DX: I20.8 Other forms of angina pectoris (principal); I10 Essential (primary) hypertension; E78.5 Hyperlipidemia, unspecified; Z95.5 Presence of coronary angioplasty implant and graft
CPT/HCPCS: 36415; 80048; 80061; 80076; 83735; 84439; 84443; 85025

== ENCOUNTER 2024-05-06 15:55 | Outpatient (CLI) | payer SELFPAY ==
[2024-05-06 16:26] LABS: Basophils # 0.1 K/mm3 (0-0.2); Eosinophils # 0.3 K/mm3 (0.0-0.4); Eosinophils % 5.4 % (0.1-12.0); Hematocrit 42.1 % (42.0-52.0); Hemoglobin 14.2 g/dL (14.1-18.0); Lymphocytes # 1.5 K/mm3 (0.7-4.5); Lymphocytes % 24.7 % (10-50); Mean Corpuscular HGB Conc 33.7 g/dL (31.8-35.4); Mean Corpuscular Hemoglobin 32.4 pg (27.0-31.2); Mean Corpuscular Volume 96.2 fl (80-94); Mean Platelet Volume 8.4 fl (7.4-10.4); Monocytes # 0.5 K/mm3 (0.1-1.0); Neutrophils # 3.7 K/mm3 (1.8-7.8); Platelet Count 226 K/mm3 (142-424); Red Blood Count 4.38 M/mm3 (4.60-6.20); Red Cell Distribution Width 13.6 % (11.5-17.5); White Blood Count 6.1 K/mm3 (4.8-10.8)
[2024-05-06 17:51] LABS: Alanine Aminotransferase 27 U/L (12-78); Albumin Level 4.5 g/dl (3.5-5.0); Alkaline Phosphatase 59 U/L (38-126); Anion Gap 10.6 mEq/L (5-15); Aspartate Amino Transferase 27 U/L (17-59); Bilirubin,Indirect 0.5 mg/dL (0.0-0.9); Bilirubin,Total 0.5 mg/dl (0.2-1.3); Bilirubin,Unconjugated 0.6 mg/dL (0.0-1.1); Blood Urea Nitrogen 33 mg/dl (9-20); Calcium 9.9 mg/dl (8.4-10.2); Carbon Dioxide 26 mmol/L (22.0-30.0); Chloride 107 mmol/L (98-107); Chol/HDL Ratio 4.4 (1-3.5); Cholesterol 193 mg/dl (140-200); Estimated Glomerular Filt Rate 76 ml/min (>60); GFR (African American) 93 ML/MIN (>60); Glucose 90 mg/dl (74-100); HDL Cholesterol 44 mg/dl (40-60); Potassium 4.6 mmoL/L (3.5-5.1); Sodium 139 mmol/L (136-145); Total Protein,Serum 7.2 g/dl (6.3-8.2); Triglycerides 233 mg/dl (30-150); VLDL Cholesterol 47 mg/dL (0-40)
[2024-05-06 18:02] LABS: Direct LDL Cholesterol 107.09 mg/dL (100-129)
[2024-05-06 18:07] LABS: Free T4 (Free Thyroxine) 0.91 ng/dl (0.78-2.19)
[2024-05-06 18:21] LABS: Thyroid Stimulating Hormone 2.34 uIU/mL (0.465-4.68)
== END 2024-05-06 23:59 | disposition home or self-care (01) ==
LOC: LAB 15:57
PROVIDERS: Visit Provider Nurse Practitioner
DX: M79.10 Myalgia, unspecified site (principal); I10 Essential (primary) hypertension; E78.5 Hyperlipidemia, unspecified; I25.10 Atherosclerotic heart disease of native coronary artery without angina pectoris; Z95.5 Presence of coronary angioplasty implant and graft
CPT/HCPCS: 36415; 80048; 80061; 80076; 83735; 84439; 84443; 85025